=== PATIENT | female | born 1965 | race Caucasian/White ===

== ENCOUNTER 2021-05-25 12:30 | Outpatient (CLI) | payer BC, SELFPAY ==
[2021-05-25 15:24] LABS: SARS-CoV-2 RNA PCR Positive (Negative)
== END 2021-05-25 12:31 | disposition home or self-care (01) ==
PROVIDERS: PCP Internal Medicine; Visit Provider Nurse Practitioner Family
DX: U07.1 COVID-19 (principal)
CPT/HCPCS: C9803; U0003; U0005

== ENCOUNTER 2021-05-26 15:44 | Emergency (ER) | payer BC, SELFPAY ==
--- NOTE | ~2021-05-26 | CT_ITS ---
IMPRESSION: Patchy groundglass infiltrate and/or atelectasis in the dependent lower lobe 11.5 mm spiculated mass in superior segment of right lower lobe, of concern for possible lung cancer Approximately 10 mm hypoattenuating right thyroid gland lesion; consider electi ve thyroid ultrasound EXAMINATION: CT diagnostic chest wo con DATE: 05/26/2021 17:27 INDICATION: Shortness of breath, fever for 9 days. Central chest pressure. Covid-positive. TECHNIQUE: Computed tomography (CT) of the chest was performed without intravenous contrast. Automate d exposure control and iterative reconstruction technique were employed. Exam dose: 151.65 mGy-cm to jovita exam DLP. COMPARISON: None FINDINGS: Nonspecific approximately 10 mm hypoattenuating lesion of the right lobe of the thyroid gla nd. Normal heart size. No pericardial or pleural effusion. No thoracic aortic aneurysm or dissection. No hilar or mediastinal mass lesion or lymphadenopathy. There is an approximately 11.5 mm spiculated mass in the superior segment of the right lower lobe (se chris 4 image 53). Carcinoma of the right lower lobe is a major concern. 7 mm right lower lobe groundglass opacity (series 4 image 86). There is groundglass infiltrate and/atelectasis in the dependent lower lobes. Status post cholecystectomy. Normal adrenal glands. IMPRESSION: Patchy groundglass infiltrate and/or atelectasis in the dependent lower lobe 11.5 mm spiculated mass in superior segment of right lower lobe, of concern for possible lung cancer Approximately 10 mm hypoattenuating right thyroid gland lesion; consider elective thyroid ultrasound Reviewed, dictated and finalized at [facility]. Reviewed, dictated and finalized at [facility].
[2021-05-26 16:05] VITALS: BP 130/82; PULSE 97; RESP 20; TEMP 37.8; O2SAT 97
[2021-05-26] MEDS: ACETAMINOPHEN 325 MG TABLET 650 MG PO (17:00)
[2021-05-26] MEDS: methylPREDNISolone SOD SUCC 125 MG VIAL IV PUSH (17:00)
[2021-05-26] MEDS: IBUPROFEN 400 MG TABLET 800 MG PO (17:00)
[2021-05-26 17:12] LABS: Base Excess ABG 3.8 mmol/L (0-2); HCO3 ABG 25.3 mmol/L (23-29); Oxygen Content ABG 18.1 %vol (16.0-22.0); Oxygen Saturation ABG 96.3 % (95-97); Oxyhemoglobin 95.8 % (94-100); PCO2 ABG 29.4 mmHg (35-45); PO2 ABG 78.1 mmHg (80-90); Total Hemoglobin 13.4 g/dL (12.0-18.0); pH ABG 7.55 (7.35-7.45)
[2021-05-26 17:13] LABS: Device ROOM AIR; Site Drawn RIGHT BRACHIAL
[2021-05-26 17:14] LABS: Hematocrit 36.6 % (35.0-49.0); Mean Corpuscular HGB Conc 35.5 g/dL (32.0-36.0); Mean Corpuscular Hemoglobin 31.1 pg (27.0-31.0); Mean Corpuscular Volume 87.6 fL (78.0-102.0); Mean Platelet Volume 9.4 fl (9.2-11.8); Platelet Count Result 145 K/mm3 (150-420); Red Blood Count 4.18 M/mm3 (4.20-5.40); Red Cell Distribution Width 11.5 % (11.6-14.4); White Blood Count 1.9 K/mm3 (4.8-10.8)
[2021-05-26 17:31] LABS: SARS-CoV-2 Ag Positive (Negative)
[2021-05-26 17:35] LABS: Lactic Acid Reflex 0.8 mmol/L (0.4-2.0)
[2021-05-26 17:41] LABS: Alanine Aminotransferase 81 U/L (14-59); Albumin Level 3.3 g/dL (3.4-5.0); Alkaline Phosphatase 117 U/L (46-116); Anion Gap 10 mmol/L (8-16); Aspartate Amino Transferase 62 U/L (15-37); Bilirubin,Total 0.4 mg/dL (0.00-1.00); Blood Urea Nitrogen 14 mg/dL (7-18); Calcium 8.6 mg/dL (8.5-10.1); Carbon Dioxide 28 mmol/L (21-32); Chloride 102 mmol/L (98-108); Estimated Glomerular Filt Rate > 60; Glucose 112 mg/dL (70-99); Osmolality Calculated 291 mOsm/kg (285-295); Potassium 3.4 mmol/L (3.5-5.1); Sodium 140 mmol/L (136-145); Total Protein 6.7 g/dL (6.4-8.2)
[2021-05-26 18:05] LABS: Lymphocytes Absolute Manual 0.45 K/mm3 (1.1-4.5); Lymphocytes Percent Manual 24 % (18-44); Monocytes Absolute Manual 0.26 K/mm3 (0.1-0.90); Monocytes Percent Manual 14 % (3-9); Neutrophils Percent Manual 62 % (46-73); Platelet Estimate Adequate (Adequate); Total Cells Counted 100
[2021-05-26 18:06] LABS: Band Neutrophils Percent 0 % (0-6); Neutrophils Absolute Manual 1.17 K/mm3 (1.7-7.2)
[2021-05-26 19:30] VITALS: TEMP 37
[2021-05-26 20:02] VITALS: PULSE 85; RESP 18; O2SAT 96
[2021-05-26] MEDS: ALBUTEROL SULFATE (*SP) INHALER 2 PUFF INHALATION (20:05)
[2021-05-26 20:09] VITALS: PULSE 92; RESP 18; O2SAT 99
--- NOTE | 2021-05-26 21:07 | ED.URI ---
HPI - URI/Sore Throat General Chief Complaint: Upper Respiratory Infection Stated Complaint: COVID+,Cough, Fever, stomach pain,headache Time Seen by Provider: 05/26/21 15:46 Source: patient and RN notes reviewed Mode of arrival: ambulatory Limitations: no limitations History of Present Illness MD elicited complaint: fever, cough and sore throat Pertinent past history: other (covid-19 +) Onset (ago): day(s) (2) Consistency: constant Severity: moderate Able to tolerate fluids by mouth: Yes Exacerbating factors: nothing Relieving factors: nothing Associated symptoms: fever, chills, myalgias and headache Treatments prior to arrival: none Related Data Home Medications Medication Instructions Recorded Confirmed albuterol sulfate 90 mcg INHALATION QID 05/26/21 05/26/21 azithromycin 250 mg PO DIRECTED 05/26/21 05/26/21 Allergies Allergy/AdvReac Type Severity Reaction Status Date / Time No Known Allergies Allergy Unverified 04/24/20 13:14 Review of Systems Review of Systems: All systems reviewed & are unremarkable except as noted in HPI and below PMFSH Past Medical History Medical History Non-smoker Family History Family History Other Asthma Diabetes mellitus Family history of arthritis Social History Social History Smoking status: Never smoker Alcohol intake: never Exam Const: General: no acute distress and alert Orientation/consciousness: patient oriented x3 Limitations: no limitations HENMT: Head: normal to inspection Ears: external ears normal and TM's normal bilaterally General nose exam: Normal external nose present and Normal nares present Mouth: Yes lip normal and Yes moist mucous membranes Teeth and gingiva: dentition normal Eyes: Pupils: Equal, round and reactive pupils present EOM: EOMs intact bilaterally Neck: Neck: normal visual inspection and no lymphadenopathy Chest: Chest palpation & inspection: normal inspection of the chest Resp: Effort & Inspection: normal respiratory effort Auscultation: crackles, rales and rhonchi Cardio: Rate: regular rate Rhythm: regular rhythm GI: GI Palp: Yes Soft to palpation Percussion: Yes normal to percussion (non-tender) Auscultation: normal bowel sounds : General: Yes bladder normal to palpation and Yes no CVA tenderness Back/Spine/Pelvis: Back: no CVA tenderness Skin: General skin exam: normal color Neuro: General: patient oriented x3, moves all extremities, no focal motor deficits and CN's II-XI intact bilaterally Extrem: General: normal to inspection and no pedal edema Psych: Mental Status: mental status grossly normal Affect: normal affect Attitude: cooperative Course Course Emergency Course: Pt was ill but stable in the ED. Her tx regimen was started in the ED and pt was improved. She wanted to go home to continue care at home. Earliest f/u per protocol. Reevaluation(s) Reevaluation #1: VSS. no resp distress or fever. Date: 05/26/21 Time: 17:03 Vital Signs Vital signs: Vital Signs Temperature 37.8 C H 05/26/21 16:05 Pulse Rate 97 05/26/21 16:05 Respiratory Rate 20 05/26/21 16:05 Blood Pressure 130/82 05/26/21 16:05 Pulse Oximetry 97 05/26/21 16:05 Temperature 37.0 C 05/26/21 21:22 Pulse Rate 88 05/26/21 21:22 Respiratory Rate 20 05/26/21 21:22 Blood Pressure 106/72 05/26/21 21:22 Pulse Oximetry 96 05/26/21 21:22 MDM - URI/Sore Throat Differential Diagnosis Differential diagnosis: Likely upper respiratory infection, viral infection, bronchitis and other (pneumonia.) Medical Records Attestation: I reviewed the patient's medical records. Lab Data Attestation: I reviewed the patient's lab results. Result diagrams: 05/26/21 16:43 05/26/21 16:43 Labs: Lab Results 05/26/21 05/26/21 05/26/21 Range/Units 16:43 16:43 16:43
[2021-05-26 21:22] VITALS: BP 106/72; PULSE 88; RESP 20; TEMP 37; O2SAT 96
== END 2021-05-26 21:40 | disposition home or self-care (01) ==
PROVIDERS: Emergency Provider Emergency Medicine; PCP Internal Medicine
DX: U07.1 COVID-19 (principal); J12.82 Pneumonia due to coronavirus disease 2019; R91.8 Other nonspecific abnormal finding of lung field
CPT/HCPCS: 36415; 36600; 71250; 80053; 82805; 83605; 85025; 87426; 94640; 96365; 96375; 99283; 99284; A9270; C9803; J0696; J2930

== ENCOUNTER 2021-06-01 12:07 | Outpatient (NON) | payer BC, SELFPAY | END 2021-06-01 12:08 | disposition home or self-care (01) | PROVIDERS: Visit Provider Internal Medicine | DX: R19.7 Diarrhea, unspecified (principal) | CPT/HCPCS: 87324 ==

== ENCOUNTER 2021-06-03 11:13 | Outpatient (CLI) | payer BC, SELFPAY | END 2021-06-03 11:14 | disposition home or self-care (01) | LOC: CHSLAB 11:15 | PROVIDERS: PCP Internal Medicine; Visit Provider Internal Medicine | DX: J02.9 Acute pharyngitis, unspecified (principal) | CPT/HCPCS: 87880 ==